=== PATIENT | female | born 1970 | race Caucasian/White ===

== ENCOUNTER 2018-10-02 02:27 | Emergency (ER) | payer MEDICAID ==
[~2018-10-02] VITALS: Wt 60.1 kg
[~2018-10-02 02:27] MED LIST: NAPR-987
[2018-10-02 02:29] VITALS: BP 146/78; PULSE 81; RESP 19
[2018-10-02] MEDS ORDERED: KETOROLAC 60 MG INJ IM STA (03:35)
[2018-10-02] MEDS ORDERED: NITR-58 PO (04:24)
[2018-10-02] MEDS ORDERED: PHEN-537 PO (04:24)
--- NOTE | 2018-10-02 04:30 | ERD ---
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 Patient reports that this is the first time she has experienced burning with urination. Denies any vaginal discharge, vaginal bleeding, abdominal pain, chest pain, shortness of breath, nausea, vomiting, fever. ROS All systems reviewed and are negative except as per history of present illness. Medications Home Meds Active Scripts Phenazopyridine Hcl* (Pyridium*) 100 Mg Tab, 100 MG PO TID PRN for URINARY PAIN, #8 TAB Prov:BREE MURCIA PA-C 10/02/18 Nitrofurantoin Monohyd Macrocr* (Macrobid*) 100 Mg Capsr, 100 MG PO BID for 7 Days, CAP Prov:BREE MURCIA PA-C 10/02/18 Reported Medications Naproxen (Ec-Naprosyn) 500 Mg Tablet. 06/06/10 Allergies Allergies: Coded Allergies: No Known Drug Allergies (Verified Allergy, Mild, 06/06/10) PMhx/Soc History of Surgery: Yes () Anesthesia Reaction: No Hx Neurological Disorder: No Hx Respiratory Disorders: No Hx Cardiac Disorders: No Hx Psychiatric Problems: No Hx Miscellaneous Medical Probl: No Hx Alcohol Use: No Hx Substance Use: No Hx Tobacco Use: No Smoking Status: Never smoker FmHx Family History: No diabetes, No coronary disease Physical Exam Vitals Vital Signs Date Temp Pulse Resp B/P (MAP) Pulse Ox O2 O2 Flow FiO2 Time Delivery Rate 10/02/18 98.3 81 19 146/78 100 02:29 (100) Physical Exam Const: Ooc-vgz-beyqiowfv, well-nourished. In no acute distress. Head: Atraumatic, normocephalic Eyes: Normal Conjunctiva without injection. No purulent discharge. ENT: Normal external ear, nose. Moist oropharynx without tonsillar exudates. Non-erythematous pharynx. Uvula midline. No drooling. No trismus. Neck: No cervical midline tenderness. Full range of motion. No meningismus. No cervical lymphadenopathy. No JVD. Resp: Clear to auscultation bilaterally. No wheezing, rhonchi, rales, or crackles. No accessory muscle use. No retractions. Cardio: Regular rate and rhythm. No murmurs, rubs or gallops. Abd: Soft, slight suprapubic tenderness, non distended. Normal bowel sounds. No palpable masses. No rebound tenderness. No guarding. Negative McBurney's point. Negative psoas sign. Negative obturator sign. Skin: No petechiae or rashes Back: No midline tenderness. No CVA tenderness. Ext: No cyanosis, or edema. Neur: Awake and alert. Normal gait. Normal coordination. Psych: Normal Mood and Affect Results 24 hrs Laboratory Tests Test 10/02/18 03:49 10/02/18 03:51 Bedside Urine pH (LAB) 6.5 Bedside Urine Protein (LAB) 1+ Bedside Urine Glucose (UA) Negative Bedside Urine Ketones (LAB) Negative Bedside Urine Blood 2+ Bedside Urine Nitrite (LAB) Negative Bedside Urine Leukocyte Esterase (L 3+ POC Beta HCG, Qualitative NEGATIVE Current Medications Medications Dose Sig/Christine Start Time Status Last (Trade) Ordered Route PRN Stop Time Admin Dose Reason Admin Ketorolac 60 mg ONCE STAT 10/02/18 DC 10/02/18 Tromethamine IM 03:35 10/02/18 04:09 (Toradol) 03:37 Procedures/MDM 48-year-old female patient with no significant past medical history presents to the ED complaining of dysuria that started 3 days ago. Patient is afebrile and nontoxic-appearing. Patient was given Toradol 60 mg IM here in the ED with improvement of her pain. Blood pressure is 146/78. Blood Pressure Assessment: Patient's blood pressure was elevated (>120/80) but appears stable without evidence of hypertension emergency or urgency. The patient was counseled about the risks of hypertension and urged to pursue outpatient monitoring and therapy within a week with their primary care physician. Urine dip showed 3+ leukocyte esterase, 2+ hematuria. Patient will be treated for urinary tract infection. Patient is afebrile, not complaining of any vomiting, flank pain. Low suspicion for pyelonephritis, subdural renal stone. Low suspicion for ectopic , ovarian torsion, gastritis, GERD, peptic ulcer disease, cholecystitis, choledocholithiasis, cholangitis, pancreatitis, appendicitis, bowel obstruction, ileus, volvulus, nephrolithiasis, pyelone phritis, hepatitis, perforated viscus, diverticulitis, strangulated/incarcerated hernia, DKA, acute abdomen, mesenteric ischemia or other emergent conditions. Diagnosis: Urinary tract infection Discharge medications: Pyridium, Macrobid Follow up with primary care physician in 1-2 days. Instructed patient to return to the ED sooner for any worsening symptoms. Patient's questions were answered. Patient is hemodynamically stable. Patient understood and agreed with discharge plan. Patient discharged stable. Disclaimer: Inadvertent spelling and grammatical errors are likely due to EHR/dictation software use and do not reflect on the overall quality of patient care. Also, please note that the electronic time recorded on this note does not necessarily reflect the actual time of the patient encounter. Departure Diagnosis: Primary Impression: Urinary tract infection Urinary tract infection type: site unspecified Hematuria presence: with hematuria Qualified Codes: N39.0 - Urinary tract infection, site not specified; R31.9 - Hematuria, unspecified Condition: Stable Patient Instructions: Urinary Tract Infections in Women Ref[facility] Usted se carreno hecho un examen mdico de control que le indica que no est en alirio condicin que requiera tratamiento urgente en el Departamento de Emergencia. Un estudio ms profundo y el tratamiento de reagan condicin pueden esperar sin ningn riesgo hasta que usted sea atendida/o en el consultorio de reagan mdico o alirio clnica. Es responsabilidad suya arreglar ailrio chris para el seguimiento del janet. MANEJO DE CONDICIONES NO URGENTES EN EL FUTURO 1) Si usted tiene un mdico de atencin primaria: Usted debera llamar a reagan mdico de atencin primaria antes de venir al departamento de emergencia. Despus de las horas de consultorio, reagan doctor o reagan asociado/a est disponible por telfono. El mdico o enfermero de [place] en el servicio telefnico puede asesorarle por frankie medio para atender el problema, o janet contrario se puede programar alirio chris. 2) Si usted no tiene un mdico de atencin primaria: Llame al mdico o clnica de referencia que aparece abajo madhuri las horas de consultorio para hacer alirio chris para que le vean. CLINICAS: [facility] [phone] [facility] [phone] [facility] [phone] [place] [id number] [phone] [place] [address] [phone] [facility]. [phone] [address] [facility]. [facility] () Usted se carreno hecho un examen mdico de control que le indica que no est en alirio condicin que requiera tratamiento urgente en el Departamento de Emergencia. Un estudio ms profundo y el tratamiento de reagan condicin pueden esperar sin ningn riesgo hasta que usted sea atendida/o en el consultorio de reagan mdico o alirio clnica. Es responsabilidad suya arreglar alirio chris para el seguimiento del janet. MANEJO DE CONDICIONES NO URGENTES EN EL FUTURO 1) Si usted tiene un mdico de atencin primaria: Usted debera llamar a reagan mdico de atencin primaria antes de venir al departamento de emergencia. Despus de las horas de consultorio, reagan doctor o reagan asociado/a est disponible por telfono. El mdico o enfermero de [place] en el servicio telefnico puede asesorarle por frankie medio para atender el problema, o janet contrario se puede programar alirio chris. 2) Si usted no tiene un mdico de atencin primaria: Llame al mdico o condado institucions de referencia que aparece abajo madhuri las horas de consultorio para hacer alirio chris para que le vean. SI USTED NO PUEDE PAGAR PARA MITESH UN MEDICO puede ir a: [facility] [address] [place] [address] [facility] [address] [place] [address] [facility] [address] [place] [address] [facility] [address] [place], [place] [phone] [employer] [address] [facility] [address] [place], [place] [phone] OFFICE FAX , [facility] [address] [place], [place] [phone] DR. GARCIAFORMERLY [facility] [address] [place], [place] [phone] [address] LUNA, [facility] [address] [facility], [address], [facility] [id number] [facility] [address] [place] [address] [facility] [address] [place] [address] [address] [facility] [address] [address] [facility] [phone], [place] [address] [facility]. [address], [facility] [address] [address], [facility] [address] [place], [place] [phone] [facility] Hours: 8:00 am - 5:00 pm Additional Instructions: Llame al doctor MAANA y kareem alirio CHRIS PARA DENTRO DE 2-3 OCONNELL.Dgale a la secretaria que nosotros le instruimos hacer esta chris.Avise o llame si reagan condicin se empeora antes de la chris. Regresa aqui si peor o no mejor. BREE MURCIA PA-C Oct 02, 2018 04:30
== END 2018-10-02 04:30 | disposition home or self-care (01) ==
LOC: FTE 02:27
DX: N39.0 Urinary tract infection, site not specified (principal)
CPT/HCPCS: 81003; 81025; 96372; J1885; Z7502